=== PATIENT | male | born 1990 | race Caucasian/White ===

== ENCOUNTER 2017-04-14 10:59 | Emergency (ER) | payer MEDICAID, SELFPAY | END 2017-04-14 13:47 | disposition home or self-care (01) | PROVIDERS: Emergency Provider Emergency Medicine; Family Provider Physician Assistant; Visit Provider Emergency Medicine | DX: J01.90 Acute sinusitis, unspecified (principal); G43.909 Migraine, unspecified, not intractable, without status migrainosus | CPT/HCPCS: 96372; 99283 ==